=== PATIENT | male | born 1990 | race Two or more races ===

== ENCOUNTER 2018-06-22 23:30 | Emergency (ER) | payer SELFPAY ==
[2018-06-22 23:38] VITALS: BP 147/89; PULSE 110; RESP 16; TEMP 98; O2SAT 98
--- NOTE | 2018-06-23 00:08 | ED PDOC ---
HPI: General Adult Time Seen by Provider: 06/22/18 23:55 Chief Complaint (Nursing): Alcohol Ingestion Chief Complaint (Provider): Alcohol Ingestion History Per: Patient History/Exam Limitations: no limitations Onset/Duration Of Symptoms: Hrs Current Symptoms Are (Timing): Better Additional Complaint(s): 28 year old male brought to the ED for public alcohol intoxication. Patient admits to alcohol and Adderall use. Otherwise, he has no other medical complaints. Currently, in the ED patient declines medical care and is with a sober friend. PMD: unknown Past Medical History Reviewed: Historical Data, Nursing Documentation, Vital Signs Vital Signs: Last Vital Signs Temp 98.0 F 06/22/18 23:36 Pulse 110 H 06/22/18 23:36 Resp 16 06/22/18 23:36 BP 147/89 06/22/18 23:36 Pulse Ox 98 06/22/18 23:36 Primary Care Provider: FAMILY PROVIDER,NO - Medical History PMH: No Chronic Diseases - Family History Family History: States: Unknown Family Hx - Allergies Allergies/Adverse Reactions: Allergies Allergy/AdvReac Type Severity Reaction Status Date / Time No Known Allergies Allergy Verified 06/22/18 23:35 Review of Systems ROS Statement: Except As Marked, All Systems Reviewed And Found Negative Constitutional: Negative for: Fever Cardiovascular: Negative for: Chest Pain Gastrointestinal: Negative for: Abdominal Pain Psych: Negative for: Suicidal ideation, Other (homicidal ideation ) Physical Exam - Reviewed Nursing Documentation Reviewed: Yes Vital Signs Reviewed: Yes - Physical Exam Head Exam: Positive for: NORMOCEPHALIC Neurological/Psych: Positive for: Awake, Alert, Normal Tone, Oriented (x3), Gait (steady), Other (fluent speech) - ECG O2 Sat by Pulse Oximetry: 98 (RA) Pulse Ox Interpretation: Normal Medical Decision Making Medical Decision Makin Upon provider reevaluation patient is feeling better, is medically stable, and requires no further treatment in the ED at this time. Patient will be discharged. Counseling was provided and all questions were answered regarding diagnosis. There is agreement to discharge plan. Return if symptoms persist or worsen. -- Scribe Attestation: Documented by Consuelo Pino, acting as a scribe for Marco Antonio Cervantes MD Provider Scribe Attestation: All medical record entries made by the Scribe were at my direction and personally dictated by me. I have reviewed the chart and agree that the record accurately reflects my personal performance of the history, physical exam, medical decision making, and the department course for this patient. I have also personally directed, reviewed, and agree with the discharge instructions and disposition. Disposition - Clinical Impression Clinical Impression: Alcohol use - Patient ED Disposition Is Patient to be Admitted: No - Disposition Disposition: Routine/Home Disposition Time: 00:10 Condition: STABLE Instructions: Alcohol Use - When Is Drinking a Problem? Forms: [employer] ([place]ammar[place])
== END 2018-06-22 23:55 | disposition home or self-care (01) ==
LOC: H.ER 23:30
DX: F10.129 Alcohol abuse with intoxication, unspecified (principal)